=== PATIENT | female | born 1960 | race Caucasian/White ===

== ENCOUNTER 2016-11-27 10:01 | Emergency (ER) | payer OTHER ==
[2016-11-27] MEDS ORDERED: IOPAMIDOL (ISOVUE 370) 100 ML BTL IV ONE (10:23)
--- NOTE | 2016-11-27 10:48 | EDPHY ---
H & P Stated Complaint: dizzy/weak/lightheaded post camping 1 week ago/abnl lab Time Seen by Provider: 11/27/16 10:14 HPI/ROS: CHIEF COMPLAINT: Sent to ED for evaluation of possible pulmonary embolism HISTORY OF PRESENT ILLNESS: Patient is referred to the emergency department by her primary care provider for evaluation of possible pulmonary embolism. Approximately week ago, the patient developed shaking chills, headache and lightheadedness. She was seen in emergency department some accounting diagnosed with a possible altitude illness. Her symptoms persisted. She has had some follow up with her primary care provider. This week she was noted to have an elevated D-dimer. 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 She has been off anticoagulation therapy for the past 3 years. The patient denies significant past medical history. The patient continues to have mild dyspnea and lightheadedness. She denies asymmetric calf pain or swelling. She denies any ongoing fever, cough or congestion. REVIEW OF SYSTEMS: A comprehensive 10 point review of systems is otherwise negative aside from elements mentioned in the history of present illness. - Personal History Current Tetanus/Diphtheria Vaccine: Unsure - Medical/Surgical History Hx Asthma: No Hx Chronic Respiratory Disease: No Hx Diabetes: No Hx Cardiac Disease: No Hx Renal Disease: No Hx Cirrhosis: No Hx Alcoholism: No Hx HIV/AIDS: No Hx Splenectomy or Spleen Trauma: No Other PMH: pe/dvt r knee surg - Social History Smoking Status: Never smoked - Physical Exam Exam: General Appearance: Alert, no distress Eyes: Pupils equal and round no pallor or injection ENT, Mouth: Mucous membranes moist Respiratory: There are no retractions, lungs are clear to auscultation Cardiovascular: Regular rate and rhythm Gastrointestinal: Abdomen is soft and nontender, no masses, bowel sounds normal Neurological: A&O, normal motor function, normal sensory exam, normal cranial nerves Skin: Warm and dry, no rashes Musculoskeletal: Neck is supple nontender Extremities: symmetrical, full range of motion Constitutional: Initial Vital Signs Temperature (C) 36.7 C 11/27/16 10:06 Heart Rate 75 11/27/16 10:06 Respiratory Rate 20 11/27/16 10:06 Blood Pressure 135/91 H 11/27/16 10:06 O2 Sat (%) 96 11/27/16 10:06 O2 Delivery Mode Room Air Allergies/Adverse Reactions: Penicillins Allergy (Verified 11/27/16 10:06) Home Medications: Medication Instructions Recorded NK [No Known Home Meds] 11/27/16 Medical Decision Making - Diagnostics Imaging Results: CT chest pulmonary angiogram: Images reviewed by myself and discussed with radiologist Dr. Gonzalez. Negative for pulmonary embolism or other significant intrathoracic abnormality. ED Course/Re-evaluation: I reviewed the results of the lab testing done immediately prior to the patient' s arrival. She is noted to have a normal CBC, normal serum chemistries and a normal sed rate. The patient was taken for a CT angiogram her chest which demonstrates no evidence of a pulmonary embolism, pneumonia or pneumothorax. The patient is noted to be hemodynamically stable here. The etiology of her symptoms over the past week does remain uncertain. At this point time she is afebrile. She reports that she had negative blood cultures done earlier in the week. The patient does not appear septic or critically ill. At this point time I do feel the patient can be discharged home and continue to work with her symptoms with her primary care provider. She is discharged home with customary aftercare instructions and return precautions. Differential Diagnosis: Differential diagnosis considered includes pulmonary embolism, pneumonia, heart failure, metabolic abnormality, myocardial infarction, pericarditis, dehydration , renal failure Departure - Departure Disposition: Home, Routine, Self-Care Clinical Impression: Fatigue Condition: Good Instructions: Fatigue (ED) Additional Instructions: 1. Please return to the emergency department worsening since. 2. Your CT scan shows no significant abnormality. Your blood work also is within normal limits. 3. Please try and increase your fluid intake. Please use Tylenol and ibuprofen as needed. Referrals: JAMIN ALCANTARA [Primary Care Provider] - As per Instructions
[2016-11-27 11:49] VITALS: BP 141/72; PULSE 60; RESP 14; TEMP 97.5; O2SAT 95
== END 2016-11-27 11:50 | disposition home or self-care (01) ==
DX: R53.83 Other fatigue (principal)
CPT/HCPCS: Q9967